=== PATIENT | male | born 1960 | race Caucasian/White ===

== ENCOUNTER → 2021-01-28 | Outpatient (CLI) | payer OTHER ==
[~2021-01-28] MED LIST: ELIQUIS2.5 MG PO; LISINOPRIL5 MG PO; SOTALOL80 MG PO
[2021-01-28 09:58] LABS: HEMOGLOBIN 15.6 gm/dl (14.0-17.5); RED BLOOD COUNT 4.95 M/UL (4.20-5.50); WHITE BLOOD COUNT 5.4 K/UL (4.5-11.0)
[2021-01-28 10:17] LABS: BUN/CREATININE RATIO 20 (0-10)
== END ==
LOC: OPSV2 01-23 11:00 → EDSTATUS 08:00 → OPSV2 09:07
PROVIDERS: Orthopaedic Surgery
DX: Z01.818 Encounter for other preprocedural examination (principal); M16.11 Unilateral primary osteoarthritis, right hip
CPT/HCPCS: 36415; 71046; 80048; 85025; 93005

== ENCOUNTER → 2021-02-03 | Outpatient (CLI) | payer OTHER ==
[~2021-02-03] MED LIST changes: +COLACE100 MG PO; +CYCLOBENZAPRINE10 MG PO; -ELIQUIS2.5 MG PO; +ELIQUIS5 MG PO; +ENDOCET 7.5-321 EACH PO; +MIRALAX17 GM PO; +ZOFRAN4 MG PO
[2021-02-03 14:01] LABS: BUN/CREATININE RATIO 13 (0-10)
== END ==
LOC: LAB 12:33
PROVIDERS: Orthopaedic Surgery
DX: Z01.812 Encounter for preprocedural laboratory examination (principal)
CPT/HCPCS: 36415; 80048; 86850; 86900; 86901

== ENCOUNTER 2021-02-04 06:11 | Day surgery (SDC) | payer OTHER ==
[~2021-02-04] VITALS: Ht 190.5 cm; Wt 139.3 kg
[~2021-02-04 06:11] MED LIST changes: -COLACE100 MG PO; -CYCLOBENZAPRINE10 MG PO; -ENDOCET 7.5-321 EACH PO; -MIRALAX17 GM PO; -ZOFRAN4 MG PO
[2021-02-04] MEDS ORDERED: ENDOCET 7.5-321 EACH PO (08:35)
[2021-02-04] MEDS ORDERED: CYCLOBENZAPRINE10 MG PO (08:35)
[2021-02-04] MEDS ORDERED: ZOFRAN4 MG PO (08:35)
--- NOTE | 2021-02-04 17:57 | NUR ---
1220 PATIENT ARRIVED TO ROOM 5124 FROM PACU. RLE PINK, WARM, PULSES NORMAL. PATIENT MOVES RIGHT LEG, WIGGLES RIGHT TOES. SURGICAL DRSG WNL. POLAR ICE PLACED BY PACU NURSE, CONTINUOUS TOLERATED. INCENTIVE SPIROMETER GIVEN TO PATIENT. INSTRUCTED PATIENT HOW TO USE, AND HOW OFTEN. PATIENT VERBALIZED UNDERSTANDING AND DEMONSTRATED PROPER USE OF INCENTIVE SPIROMETER.
[2021-02-05 02:50] LABS: HEMOGLOBIN 12.8 gm/dl (14.0-17.5); RED BLOOD COUNT 3.96 M/UL (4.20-5.50); WHITE BLOOD COUNT 13.8 K/UL (4.5-11.0)
[2021-02-05 03:08] LABS: BUN/CREATININE RATIO 16 (0-10)
[2021-02-05] MEDS ORDERED: MIRALAX17 GM PO (10:19)
[2021-02-05] MEDS ORDERED: COLACE100 MG PO (10:19)
== END 2021-02-05 11:34 | disposition home or self-care (01) ==
LOC: M/S 06:11 → OR 06:11 → EDSTATUS 07:30 → M/S 12:18 → OR 02-05 11:34
PROVIDERS: Orthopaedic Surgery
DX: M16.11 Unilateral primary osteoarthritis, right hip (principal); M25.751 Osteophyte, right hip; M17.11 Unilateral primary osteoarthritis, right knee; I10 Essential (primary) hypertension; I48.0 Paroxysmal atrial fibrillation; E66.01 Morbid (severe) obesity due to excess calories; Z68.41 Body mass index [BMI] 40.0-44.9, adult; Z86.16 Personal history of COVID-19; Z79.01 Long term (current) use of anticoagulants; Z20.822 Contact with and (suspected) exposure to COVID-19
CPT/HCPCS: 36415; 73501; 73502; 76000; 80048; 85027; 97116-GP-CQ; 97161; 97166; 97530-GP-CQ; C1776; J0690; J1100; J2250; J2405; J2704; J2710; J2795; J3010; J3370; J7050; J7120